=== PATIENT | male | born 2000 | race Caucasian/White ===

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

== ENCOUNTER 2023-03-17 11:32 | Emergency (ER) | payer OTHER, SELFPAY ==
[2023-03-17 11:37] VITALS: BP 150/70; PULSE 90; RESP 18; TEMP 36.8; O2SAT 99
--- NOTE | 2023-03-17 12:20 | DI.RAD_ITS ---
Exam(s) XR CHEST 2V PA LATERAL EXAM: XR CHEST 2V PA LATERAL CLINICAL HISTORY: rt chest pain TECHNIQUE: 2D digital imaging was performed. COMPARISON: No exams were available for comparison FINDINGS: HEART: Normal size. Aorta: Not dilated. PULMONARY VASCULATURE: Normal. LUNGS: Clear. PLEURAL SPACE: No pleural effusion or pneumothorax. BONE:Unremarkable for age. Soft tissues: Unremarkable. IMPRESSION: No acute abnormality. DATA REPOSITORY: RADIATION DOSE DELIVERED:
--- NOTE | 2023-03-17 12:22 | W.ED.GENAD ---
HPI General Mode of arrival: ambulatory. Date/Time Provider Initiated Documentation: 03/17/23 11:45. Limitations to Documentation: no limitations. Information obtained by: patient. HPI Narrative: 23-year-old male presents with chief complaint of chest pain. Patient states that he was [place] and fell and landed on his right flank and back. He sustained direct trauma to his ribs on that side. He has had pain since the fall 2 days ago. No associated shortness of breath. No abdominal pain. No other injury sustained. Related Data Home Medications Medication Instructions Recorded Confirmed Unknown [No Known Home Meds] 04/21/21 03/17/23 Allergies Allergy/AdvReac Type Severity Reaction Status Date / Time No Known Allergies Allergy Unverified 03/17/23 11:42 General Stated Complaint: Fall/Non TraumaCriteria HANNA: 3 Review of Systems All systems reviewed & are unremarkable except as noted in HPI and below Cardiovascular Cardiovascular: Denies dyspnea Respiratory Respiratory: Denies dyspnea Musculoskeletal Musculoskeletal: Reports as per HPI Exam Const General: cooperative and no acute distress [facility] Head: normocephalic and atraumatic Mouth: moist mucous membranes Eyes Conjunctivae: normal conjunctivae Sclera: normal sclerae Neck Neck: trachea midline and supple Chest Chest: no crepitus, tenderness rib (Right lower posterior lateral) and other Resp Auscultation: clear to auscultation bilaterally, no rales, no rhonchi and no wheezes Cardio Rate: regular rate and not tachycardic Rhythm: regular rhythm GI Palpation: soft, not firm, no guarding, no masses, not rigid and nontender Back/Spine/Pelvis Cervical Spine: cervical ROM normal and No cervical spinal tenderness Thoracic/Lumbar Spine: thoracic and lumbar spine normal to inspection Skin General skin exam: no rashes or lesions noted Neuro General: patient alert, patient awake and tone normal Psych Appearance: grossly normal Mental Status: mental status grossly normal Speech and Movement: speech and movement normal Course Vital Signs Vital signs: Vital Signs Temperature 36.8 C 03/17/23 11:37 Pulse 90 03/17/23 11:37 Respiratory Rate 18 03/17/23 11:37 Blood Pressure 150/70 H 03/17/23 11:37 Pulse Oximetry 99 03/17/23 11:37 Temperature 36.8 C 03/17/23 11:37 Temperature Source Oral 03/17/23 11:37 Pulse 90 03/17/23 11:37 Respiratory Rate 18 03/17/23 11:37 Respiratory Effort Normal 03/17/23 11:52 Respiratory Depth Normal 03/17/23 11:52 Respiratory Pattern Normal 03/17/23 11:52 Blood Pressure 150/70 H 03/17/23 11:37 Blood Pressure Position Sitting 03/17/23 11:37 Pulse Oximetry 99 03/17/23 11:37 Oxygen Delivery Method Room Air 03/17/23 11:37 Oxygen Flow Rate 0 03/17/23 11:37 Pain Level 5 03/17/23 11:52 Medical Decision Making 23-year-old male here 2 days after fall while [place] rail [place] with direct trauma to posterior lateral right ribs. Patient tender right posterior lateral ribs with no crepitus. Concern for diminished breath sounds on the right. Patient is hemodynamically stable. Abdominal exam is benign. No gross hematuria. Plan to obtain chest x-ray to assess for pneumothorax. Chest x-ray was obtained and interpreted by radiology: No acute cardiopulmonary process. No pneumothorax. Suspect rib contusion versus fracture not apparent on x-ray. Plan for incentive spirometry and pain control. Quality:[facility] Health Related Social Needs: No Data to Display [facility] All Active Problems (Updated 03/17/23 @ 12:32 by Latrell Jurado MD) Contusion of rib on right side (Acute) Social History Smoking/Tobacco Use Status: Current every day Tobacco Type: cigarettes and e-cigarettes Smoking risk assessment performed?: Yes Alcohol Intake: current Alcohol Intake frequency: a few times a month Drug use: Never Substance use type: does not use Do you feel safe at home: Yes Do you feel safe in your relationship?: Yes Discharge Plan Disposition Patient Disposition: Home Condition: Stable Discharge Details Clinical Impression: Contusion of rib on right side Primary Care Provider: Danica,Local ED Provider: Latrell Jurado Home Meds and New Rx's Prescriptions: No Action No Known Home Meds Discharge Instructions Instructions: Rib Contusion (ED) Additional Instructions: Please take ibuprofen over the counter. Take 600mg by mouth every 6 hours as needed for pain. Please take acetaminophen (tylenol) - 650mg every 6 hours by mouth as needed for pain. Use lidocaine patches. These are available [id number]. Dose according to label. Please contact your primary care physician to arrange follow-up. Your blood pressure was elevated today at 150/70. This is too high. Please be sure to follow-up with your primary care physician to have this rechecked. Should blood pressure remain elevated, additional diagnostics and treatment may be necessary. Return to the ER immediately for any worsening or new concerning symptoms.
[2023-03-17] MEDS: Lidocaine 5% Patch 1 PATCH TP (12:43)
[2023-03-17] MEDS: Acetaminophen 325 MG TAB 650 MG PO (12:44)
[2023-03-17] MEDS: Ibuprofen 600 MG TAB PO (12:44)
[2023-03-17 12:47] VITALS: BP 150/70; PULSE 90; RESP 18; TEMP 36.8; O2SAT 99
== END 2023-03-17 12:52 | disposition home or self-care (01) ==
PROVIDERS: Emergency Provider Student in an Organized Health Care Education/Training Program
DX: S20.211A Contusion of right front wall of thorax, initial encounter (principal); F17.210 Nicotine dependence, cigarettes, uncomplicated; F17.290 Nicotine dependence, other tobacco product, uncomplicated; W17.89XA Other fall from one level to another, initial encounter; Y93.23 Activity, snow (alpine) (downhill) skiing, snowboarding, sledding, tobogganing and snow tubing; Y92.838 Other recreation area as the place of occurrence of the external cause
CPT/HCPCS: 99283; 71046

== ENCOUNTER 2023-03-21 09:59 | Emergency (ER) | payer OTHER, SELFPAY ==
[2023-03-21] VITALS (25 sets, daily range): BP systolic 139–218; BP diastolic 65–196; PULSE 63–81; RESP 14–23; O2SAT 95–100
--- NOTE | 2023-03-21 10:00 | RT.EKG_ITS ---
APPROVED REPORT Exam: Resting ECG Reason for Exam: chest pain Patient Location: E HR:70 bpm ECG Measurements Heart Rate 70 AXIS DC 104 P 245 QRSd 102 QRS 82 QT 404 T 46 QTc 436 Conclusion Ectopic atrial rhythm...abnormal P axis, normal rate ST elev, probable normal early repol pattern...ST elevation, age<55 Physician: no stemi, minimal elevation with no recip depression. Does not meet stemi criterion
[2023-03-21 10:24] LABS: Abs Immature Grans 0.09 10^3/uL (0.0-0.06); Absolute Monocyte Count 0.76 10^3/uL (0.1-0.8); Basophils % 0.6; Eosinophils % 1.6; HCT 46.3 % (40.0-50.0); HGB 16.4 g/dL (13.5-17.5); Immature Grans % 0.6; Lymphocytes % 8.2; MCH 30.8 pg (27.0-33.0); MCHC 35.4 % (32.0-36.0); MCV 87 fL (80-95); MPV 10.1 fL (8.0-11.0); Monocytes % 4.8; Neutrophils % 84.2; Platelet Count 193 10^3/uL (130-400); RBC 5.32 10^6/uL (4.36-5.78); RDW 11.9 % (11.8-14.1); RDW-SD 37.9 fL; WBC 15.91 10^3/uL (4.4-10.8)
[2023-03-21 10:28] LABS: Absolute Eosinophil Count 0.25 10^3/uL (0.0-0.7)
[2023-03-21] MEDS: Omnipaque 350 MG/ML 100 ML BTL IJ (10:30)
[2023-03-21] MEDS: Normal Saline - Diluent 50 ML VIAL IJ (10:31)
--- NOTE | 2023-03-21 10:33 | DI.CT_ITS ---
Exam(s) CT HEAD CERV SPINE FACIAL WO EXAM: CT HEAD CERV SPINE FACIAL WO CLINICAL HISTORY: ski accident, hit face, altered. TECHNIQUE: Imaging Protocol: Axial computed tomography images with coronal and sagittal reformatted images were created and reviewed COMPARISON: CT CT HEAD WO from 04/21/2021 FINDINGS: CT BRAIN: There are no skull fractures nor fluid in the visualized paranasal sinuses. There is circumferential mucosal thickening without air-fluid levels noted in the maxillary sinuses. Also mild mucosal thick ening in the frontal and sphenoid sinuses. Mastoid air cells are clear. There is a small area of hemorrhage in the high left frontal lobe measuring 1.2 x 1.0 cm.. There is also some layering blood within the dependent aspect of the right lateral ventricle. There is also so me blood within the left side of the upper spinal canal at the craniocervical junction. There is also subtle density in the anterior right temporal lobe which may be subtle contusion CT MAXILLOFACIAL BONES: There is mucosal thickening the paranasal sinuses without air-fluid levels. No obvious orbital blowou t fracture. No nasal bone fractures. No mandible fracture. CT CERVICAL SPINE: There is atlantoaxial subluxation with 7 millimeter distance between the C1 arch anterior aspect and the anterior aspect of the odontoid process. There is no evidence of fracture of the odontoid nor of C2 nor of the C1 arch.. There is no offset of the spinal laminar line. There is blood in the upper le ft cervical spinal canal. IMPRESSION: 1. Acute intracranial hemorrhage. There is hyperdense blood in the high left frontal lobe measuring a pproximately 12 x 10 x 10 mm. There is also blood layering within the right lateral ventricle. There is also some blood within the left side of the upper spinal canal at the craniocervical junction 2. Significant spinal trauma with atlantoaxial subluxation and some blood evident within the left laura e of the spinal canal at the craniocervical junction region. No obvious fracture of C1 arch. Suspect an injury of the transverse ligament No facet joint malalignment evident. No facial bone fractures. Mucosal thickening in the paranasal sinuses but not associated with fluid l evels therein. Please note this trauma patient also has significant findings in the chest and abdomen. See separate CT scan reports Findings called by myself to ER physician 03/21/2023 11:40 a.m. RADIATION DOSE DELIVERED: 2,580.35mGy.cm Total DLP 2,580.35mGy.cm Total DLP DATA REPOSITORY: All CT scans at this facility are submitted to the National Radiology Data Registry (NRDR) Dose Index Registry (DIR) with the [employer] (ACR). RADIATION OPTIMIZATION: All CT scans at this facility use at least one of these dose optimization te chniques: automated exposure control; mA and/or kV adjustment per patient size (includes targeted exa ms where dose is matched to clinical indication); or iterative reconstruction.
[2023-03-21 10:42] LABS: ALT 259 U/L (16-63); AST 292 U/L (15-37); Albumin 4.4 g/dL (3.4-5.0); Alkaline Phosphatase 71 U/L (46-116); BUN 15 mg/dL (7-18); Bilirubin, Total 0.5 mg/dL (0.2-1.0); CREATININE 1.1 mg/dL (0.70-1.30); Chloride 99 mmol/L (98-107); Estimated GFR 97.95 (mL/min/1.73m2); Glucose 179 mg/dL (74-106); Lipase 57 U/L (16-77); Potassium 3.9 mmol/L (3.5-5.1); Sodium 136 mmol/L (136-145); Total Protein 7.4 g/dL (6.4-8.2); Troponin I < 50 ng/L (< or =60)
--- NOTE | 2023-03-21 10:45 | DI.CT_ITS ---
Exam(s) CT CHEST/ABD/PEL W EXAM: CT CHEST/ABD/PEL W CLINICAL HISTORY: ski trauma, chest and abd pain, left hip trauma. TECHNIQUE: Imaging Protocol: Axial computed tomography images with coronal and sagittal reformatted images were created and reviewed CONTRAST MATERIAL: Intravenous: Omnipaque 350 Contrast volume:100 ml Oral: None COMPARISON: No exams were available for comparison FINDINGS: CHEST: LUNGS: There are patchy infiltrates and ground-glass infiltrates in both lungs, possibly lung contusi ons given the trauma history here but cannot exclude possibility of simultaneous infectious etiology. These all exhibits similar appearance. The most prominent is in the right lower lobe. There is al so some infiltrate in the right upper lobe. There is sparing of the right middle lobe. There is als o involvement of the left lower lobe medial basal segment and apical posterior segment of the left up per lobe adjacent to the major fissure. There are no pleural effusions. No pneumothorax. No signif icant focal findings in the trachea and mainstem bronchi. . MEDIASTINUM: No evidence of sternal fracture nor mediastinal hematoma. No pneumomediastinum. No inc idental hilar nor mediastinal adenopathy. Thyroid unremarkable. CARDIAC: Heart size is normal. There is no pericardial effusion.Thoracic aorta appears intact. OSSEOUS: No fractures evident.. ABDOMEN: There is significant pneumoperitoneum. LIVER: No evidence of liver laceration nor other significant focal findings in the liver. There is a tiny amount of fluid in the right paracolic gutter subjacent to the right hepatic lobe. GALLBLADDER/BILIARY: No acute gallbladder pathology. CBD is not dilated. PANCREAS: No evidence of pancreatic mass nor dilatation of the pancreatic duct. SPLEEN: Spleen size normal. There is small amount of fluid around the spleen. Subtle splenic lucenc ies noted which may be small peripheral lacerations. No subcapsular hematoma. Small amount of fluid noted subjacent to the inferior aspect of the spleen. ADRENALS: There are no significant adrenal masses. KIDNEYS: No evidence of renal lacerations. No evidence of subcapsular hematomas. No cysts nor solid renal masses. No calculi. No hydronephrosis nor hydroureter. No obvious clots nor gas in the urin flavia bladder.. ABDOMINAL AORTA: Abdominal aorta is intact. Aortoiliac segments are intact. LYMPH NODES: There is no retroperitoneal nor paraaortic adenopathy. ABDOMINAL WALL: Mild bilateral gynecomastia. No subcutaneous bruising nor fluid collections. GI: Small-bowel enteritis pattern evident. No bowel obstruction. PELVIS: LYMPH NODES: There is no intrapelvic nor inguinal adenopathy. GI: No obvious appendicitis. No evidence of sigmoid diverticulitis. URINARY BLADDER: No intraluminal clots nor extravasation. No obvious masses. No gas within the lume n. REPRODUCTIVE: Prostate size age-appropriate OSSEOUS: No fractures evident. Small benign bone island noted in the left ischial tuberosity in the pelvis. Sacroiliac joints unremarkable. No vertebral fractures. No obvious rib fractures. IMPRESSION: 1. There is concerning pneumoperitoneum. Implies ruptured viscus. There is no obvious bowel wall no r mesenteric hematoma to localize site of bowel perforation although there is a generalized small bow el enteritis pattern. There is small amount of ascites subjacent to the liver and spleen. Small per ipheral hypodensities in the spleen may be small peripheral splenic lacerations. No large subcapsula r hematoma. No liver nor kidney lacerations and the aorta appears intact. 2. Significant bilateral lung infiltrates without evidence of rib fractures, pleural effusions, pneum othorax, nor pneumomediastinum. 3. Aorta is intact. No pericardial effusion. No mediastinal hematoma. 4. Surgical consultation recommended. Discussed with ER physician. RADIATION DOSE DELIVERED: 1,261.64mGy.cm Total DLP DATA REPOSITORY: All CT scans at this facility are submitted to the National Radiology Data Registry (NRDR) Dose Index Registry (DIR) with the [employer] (ACR). RADIATION OPTIMIZATION: All CT scans at this facility use at least one of these dose optimization te chniques: automated exposure control; mA and/or kV adjustment per patient size (includes targeted exa ms where dose is matched to clinical indication); or iterative reconstruction.
[2023-03-21] MEDS: MORPHine 4 MG/ML SYR IVP (10:50)
[2023-03-21] MEDS: Ondansetron 4 MG/2 ML VIAL IVP (10:50)
--- NOTE | 2023-03-21 11:00 | DI.CT_ITS ---
Exam(s) CT THORACIC LUMBAR SPINE REC EXAM: CT THORACIC LUMBAR SPINE REC CLINICAL HISTORY: ski trauma, chest and abd pain, left hip trauma TECHNIQUE: COMPARISON: CT CT CHEST/ABD/PEL W from 03/21/2023 FINDINGS: THORACIC SPINAL COLUMN: No evidence of fracture, listhesis, nor facet joint malalignment. No acute c ompromise of the spinal canal. LUMBOSACRAL SPINAL COLUMN.: No evidence of fracture, listhesis, nor facet joint malalignment. No dis c space narrowing. No sacral fracture evident. No coccyx fracture. IMPRESSION: No acute osseous findings in the thoracic and lumbar spinal columns.
--- NOTE | 2023-03-21 11:03 | DI.RAD_ITS ---
Exam(s) XR ELBOW LT COMPLETE EXAM: XR ELBOW LT COMPLETE CLINICAL HISTORY: ski trauma, chest and abd pain, left hip trauma. TECHNIQUE: 2D digital imaging was performed. COMPARISON: No exams were available for comparison FINDINGS: 3 views No evidence of fracture or joint effusion. No swelling of the olecranon bursa. Radial head and neck appear unremarkable. Epicondyles unremarkable. IMPRESSION: No acute osseous findings in the left elbow. DATA REPOSITORY: RADIATION DOSE DELIVERED:
--- NOTE | 2023-03-21 11:03 | DI.RAD_ITS ---
Exam(s) XR ELBOW RT COMPLETE EXAM: XR ELBOW RT COMPLETE CLINICAL HISTORY: eval for fx. TECHNIQUE: 2D digital imaging was performed. COMPARISON: CR XR ELBOW LT COMPLETE from 03/21/2023 FINDINGS: 3 views No evidence of fracture no elbow joint effusion. No swelling of the olecranon bursa. Radial head an d neck unremarkable. Epicondyles unremarkable. IMPRESSION: No evidence of right elbow fracture or joint effusion. DATA REPOSITORY: RADIATION DOSE DELIVERED:
[2023-03-21] MEDS: Normal Saline 1,000 ML 1000 ML IV (11:15)
--- NOTE | 2023-03-21 11:36 | W.ED.GENAD ---
[facility] General Date/Time Provider Initiated Documentation: 03/21/23 09:59. HPI Narrative: 23-year-old male with no significant past medical history except for recent contusion of the ribs on the right side after skiing accident 4 days ago presents today via EMS for a ski accident. Patient was skiing at a very high rate of speed with his helmet when he went off one of the lips and careened into the murguia. He was unconscious. He was pulled off of trees from the forest. He was brought in by EMS for further assessment. Concern for an initial loss of consciousness. Patient was confused initially, but became quite conversant after that. He had complaints of chest and abdomen pain on initial exam via EMS. Patient continues to complain of pain in these areas. He admits to some tingling in his toes, but no other numbness or tingling elsewhere. No other complaints at this time. He is not on blood thinners. Related Data Home Medications Medication Instructions Recorded Confirmed Unknown [No Known Home Meds] 04/21/21 03/21/23 Allergies Allergy/AdvReac Type Severity Reaction Status Date / Time No Known Allergies Allergy Unverified 03/21/23 10:07 General Stated Complaint: Trauma HANNA: 2 Review of Systems All systems reviewed & are unremarkable except as noted in HPI and below Exam Narrative Exam Narrative: 1.Const: Well-nourished, Well-developed, appearing stated age 2.Eyes: PERRL, no conjunctival injection, and symmetrical lids. 3.ENT: Patient demonstrates trauma to the teeth, partial removal of the frontal incisors. Notably stable on palpation though. Moist MM. Neck: Symmetric, trachea midline, No thyromegaly. There is no evidence of raccoon eyes, causey sign, CSF rhinorrhea, mastoid tenderness, cranial crepitus, hemotympanum, exophthalmos, or hyphema. no signs of jaw deformity, no evidence of a LeFort's fracture, with an intact palate, nose and orbital region. There is no evidence of a nasal septal hematoma. No proptosis. Jaw closes symmetrically. Airway is clear. 4.CVS: Regular rate and rhythm, Normal s1 and s2. No murmurs, carotid bruits, rubs, or gallops. Radial pulses 2+ bilaterally and symmetric. Dorsalis pedis pulses 2+ bilaterally and symmetric. 2+ capillary refill. No evidence of distant heart sounds. No extremity edema. No evidence of gross hemorrhage. 5.RESP: Airway clear, no obstructions. No abrasions or ecchymosis. Chest movement symmetric with respirations. Generalized chest wall tenderness. Trachea midline. No crepitus. No step offs. No paradoxical movements. Minimal crackles throughout.. No rhonchi, wheezing or stridor. Breath sound symmetric. No Sucking chest wounds. 6.GI: Soft, nondistended, mild diffuse tenderness throughout, particularly in the flanks bilaterally. Bowel tones present but limited. No masses or organomegaly. Small ecchymotic and bruised over the left anterior hip. No periumbilical ecchymosis or seatbelt sign. Flank and CVA tenderness is appreciated. Genital Exam: Intact and traumatically unremarkable genital and rectal exam with no significant bruising, blood, or deformity. Rectal tone normal, stool without gross blood. 7.MSK: No gross deformities or discolorations or lesions. Tolerates full range of motion of extremities without tenderness. Minimal achiness in the left and right elbow. Minimal tenderness over the left hip. All compartments of upper and lower extremities are soft. Vascular exam demonstrates brisk capillary refill and intact pulses in all extremities. Pelvic exam demonstrates a stable pelvis, minimal tenderness to lateral compression and palpation of symphysis pubis. No midline tenderness to palpation over the TLS spine. Generalized tenderness throughout midline for the cervical spine. C-spine cautions maintained. Patient has +5 out of 5 strength in the lower extremities in dorsiflexion and plantarflexion, knee flexion and extension, hip flexion and extension. Normal strength for dorsiflexion and plantar flexion of the great toe bilaterally. There is +2 over 2 dorsalis pedis pulses bilaterally. There is normal sensation to the skin with light touch at the foot, knee, and hip. Normal saddle sensation. Good sensation over the deep sural nerve area bilaterally. Rectal exam demonstrates good rectal tone with excellent shyam-rectal sensation. Reflexes are +2 over 4 in the patellar reflex bilaterally. +5 out of 5 strength in the medial, ulnar, radial nerve distribution bilaterally in the hands as well as intact light touch sensation to these dermatomes on the hands 8.Skin: Warm, Dry. 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 Sensation grossly intact, no focal neurologic deficits. Patient able to move all extremities. Patient does have some perseverations, but is ANO x 4 otherwise. Normal sensation throughout, including good sensation to light touch and pinprick over the hands and the feet. 10.Psych: (AAO) x3. Appropriate mood and affect Course Vital Signs Vital signs: Vital Signs Pulse 68 03/21/23 10:03 Respiratory Rate 20 03/21/23 10:03 Blood Pressure 218/196 H 03/21/23 10:03 Pulse Oximetry 99 03/21/23 10:03 Pulse 68 03/21/23 11:06 Pulse 72 03/21/23 11:10 Respiratory Rate 16 03/21/23 11:10 Respiratory Effort Normal 03/21/23 10:06 Blood Pressure 155/88 H 03/21/23 11:06 Blood Pressure Mean 108 03/21/23 11:06 Blood Pressure Position Supine 03/21/23 10:03 Pulse Oximetry 100 03/21/23 11:10 Oxygen Delivery Method Room Air 03/21/23 10:03 Oxygen Flow Rate 0 03/21/23 10:03 Lab/Test Results Lab/Test Results: Laboratory Tests Range/Units 03/21/23 10:15 WBC (4.4-10.8) 10^3/uL 15.91 H RBC (4.36-5.78) 10^6/uL 5.32 Hgb (13.5-17.5) g/dL 16.4 Hct (40.0-50.0) % 46.3 MCV (80-95) fL 87 MCH (27.0-33.0) pg 30.8 MCHC (32.0-36.0) % 35.4 RDW (11.8-14.1) % 11.9 Plt Count (130-400) 10^3/uL 193 MPV (8.0-11.0) fL 10.1 Immature Gran % 0.6 Neutrophils % 84.2 Lymphocytes % 8.2 Monocytes % 4.8 Eosinophils % 1.6 Basophils % 0.6 Nucleated RBC % (0.0-0.3) % 0.0 Absolute Neutrophils (1.2-6.7) 10^3/uL 13.40 H Absolute Lymphocytes (1.2-3.4) 10^3/uL 1.30 Absolute Monocytes (0.1-0.8) 10^3/uL 0.76 Absolute Eosinophils (0.0-0.7) 10^3/uL 0.25 Absolute Basophils (0.0-0.2) 10^3/uL 0.10 Sodium (136-145) mmol/L 136 Potassium (3.5-5.1) mmol/L 3.9 Chloride (98-107) mmol/L 99 Carbon Dioxide (21.0-32.0) mmol/L 27.0 Anion Gap (3-11) mmol/L 10.0 BUN (7-18) mg/dL 15 Creatinine (0.70-1.30) mg/dL 1.1 Est GFR (CKD-EPI 2020) (mL/min/1.73m2) 97.95 Glucose (74-106) mg/dL 179 H Calcium (8.5-10.1) mg/dL 9.0 Total Bilirubin (0.2-1.0) mg/dL 0.5 AST (15-37) U/L 292 H ALT (16-63) U/L 259 H Alkaline Phosphatase (46-116) U/L 71 Troponin I (< or =60) ng/L < 50 Total Protein (6.4-8.2) g/dL 7.4 Albumin (3.4-5.0) g/dL 4.4 Lipase (16-77) U/L 57 Medical Decision Making 23-year-old male with no significant past medical history except for recent contusion of the ribs on the right side after skiing accident 4 days ago presents today via EMS for a ski accident. Patient was skiing at a very high rate of speed with his helmet when he went off one of the lips and careened into the murguia. He was unconscious. He was pulled off of trees from the forest. He was brought in by EMS for further assessment. Concern for an initial loss of consciousness. Patient was confused initially, but became quite conversant after that. He had complaints of chest and abdomen pain on initial exam via EMS. Patient continues to complain of pain in these areas. He admits to some tingling in his toes, but no other numbness or tingling elsewhere. No other complaints at this time. He is not on blood thinners. Exam demonstrates tenderness diffusely through the abdomen, particularly on the flanks. Diffuse chest wall tenderness. He does have fracture over the front of his incisors, however there is no instability for the jaw or the teeth otherwise. Midline cervical spine tenderness. Neurologic assessment appears to be intact with good sensation movement and strength of the upper and lower extremities, good dorsiflexion of the great toe. He does have what appears to be a bruise and ecchymosis over the left pelvic region just anterior to the ASIS. With the patient's mechanism of injury, high concern for potential intra-abdominal intracranial or thoracic injury. Will get CT scan of the head neck chest abdomen pelvis and face. He does have minimal tenderness over the elbows, no gross deformity. Will get x-rays to rule out fracture. Patient will be kept in C-spine precautions at all time out of concern for potential cervical spine injury. Bedside E-FAST was performed, pulmonary B-lines noted throughout, concern for pulmonary contusion. No evidence of pneumothorax. Abdomen shows evidence of no large amounts of free fluid in the abdomen. No gross abnormality noted. Will treat the patient's pain, monitor closely and reassess. 12:[address] imaging has returned, notable pulmonary contusions, free air is noted in the abdomen, concerning for potential perforation. No large splenic laceration is noted, there is a small amount of free fluid in the abdomen. I was contacted by the radiologist Dr. Torres, formal read is not completed, however for the brain there appears to be fluid in the right ventricle, there appears to be a small intraparenchymal bleed at the superior aspect of the brain as well. Additionally there appears to be subluxation of the AL joint with about 8 mm of disassociation. No clear evidence of fracture though. Also appears to be blood collecting in the spinal canal at that area. Reassessment was performed to the patient, and he continues to demonstrate surprising notable stability. He has diminished in his perseverations, he recalls who I am now. He is able to continue to answer all questions extremely well, and shows no signs whatsoever of airway compromise, diminishing mental status, or obtundation. Patient in fact appears more clairvoyant than previously noted on his initial assessment which at that time was quite reassuring. On secondary exam/reassessment that was performed, the area of contusion over by the ASIS is now actually starting to bleed, which changes my differential from bruising and excoriation to a small perforation. Looking at his snow pants it does appear that there is some holes in that area, concerned that potentially a stick went through and causing intra-abdominal perforation transitioning this to a penetrating trauma. Zosyn has been started. Tetanus is already updated from last year. We did contact [facility] and discussed the case with trauma surgeon Dr. Dumont, he agrees with the need for transfer. [facility] is currently not available for flight. Patient will be transferred via ground transport from [place]. Because of the patient's intracranial and neurologic etiologies, I do feel that department is appropriate rather than admission here. Patient remains notably hemodynamically stable with blood pressure in the 140 systolic, heart rate in the 60s to 70s, oxygenation 96 to 99% on room air. Patient appears appropriate for transport as availability for transport is currently present. I did contact the patient's father as well and discussed the case with him. He agrees with the current plan. I have extensively reviewed the treatment plan with the patient. I have addressed all patient concerns at this time. I have also discussed the plan with the admitting physician and they agree with the current assessment and plan and have agreed to assume responsibility for the patient. All parties demonstrate verbal understanding and agreement with our assessment and plan at this time. The documentation in this chart was dictated using [employer] dictation software. Please excuse any dictation errors. At time of transfer the patient was reassessed and continued to demonstrate No signs of acute respiratory distress requiring intubation, hemodynamic instability requiring pressor support, or rapidly declining mental status. FINDINGS: CT BRAIN: There are no skull fractures nor fluid in the visualized paranasal sinuses. There is circumferential mucosal thickening without air-fluid levels noted in the maxillary sinuses. Also mild mucosal thickening in the frontal and sphenoid sinuses. Mastoid air cells are clear. There is a small area of hemorrhage in the high left frontal lobe measuring 1.2 x 1.0 cm.. There is also some layering blood within the dependent aspect of the right lateral ventricle. There is also some blood within the left side of the upper spinal canal at the craniocervical junction. There is also subtle density in the anterior right temporal lobe which may be subtle contusion CT MAXILLOFACIAL BONES: There is mucosal thickening the paranasal sinuses without air-fluid levels. No obvious orbital blowout fracture. No nasal bone fractures. No mandible fracture. CT CERVICAL SPINE: There is atlantoaxial subluxation with 7 millimeter distance between the C1 arch anterior aspect and the anterior aspect of the odontoid process. There is no evidence of fracture of the odontoid nor of C2 nor of the C1 arch.. There is no offset of the spinal laminar line. There is blood in the upper left cervical spinal canal. IMPRESSION: 1. Acute intracranial hemorrhage. There is hyperdense blood in the high left frontal lobe measuring approximately 12 x 10 x 10 mm. There is also blood layering within the right lateral ventricle. There is also some blood within the left side of the upper spinal canal at the craniocervical junction 2. Significant spinal trauma with atlantoaxial subluxation and some blood evident within the left side of the spinal canal at the craniocervical junction region. No obvious fracture of C1 arch. Suspect an injury of the transverse ligament No facet joint malalignment evident. No facial bone fractures. Mucosal thickening in the paranasal sinuses but not associated with fluid levels therein. Please note this trauma patient also has significant findings in the chest and abdomen. See separate CT scan reports Findings called by myself to ER physician 03/21/2023 11:40 a.m. FINDINGS: CHEST: LUNGS: There are patchy infiltrates and ground-glass infiltrates in both lungs, possibly lung contusions given the trauma history here but cannot exclude possibility of simultaneous infectious etiology. These all exhibits similar appearance. The most prominent is in the right lower lobe. There is also some infiltrate in the right upper lobe. There is sparing of the right middle lobe. There is also involvement of the left lower lobe medial basal segment and apical posterior segment of the left upper lobe adjacent to the major fissure. There are no pleural effusions. No pneumothorax. No significant focal findings in the trachea and mainstem bronchi. . MEDIASTINUM: No evidence of sternal fracture nor mediastinal hematoma. No pneumomediastinum. No incidental hilar nor mediastinal adenopathy. Thyroid unremarkable. CARDIAC: Heart size is normal. There is no pericardial effusion.Thoracic aorta appears intact. OSSEOUS: No fractures evident.. ABDOMEN: There is significant pneumoperitoneum. LIVER: No evidence of liver laceration nor other significant focal findings in the liver. There is a tiny amount of fluid in the right paracolic gutter subjacent to the right hepatic lobe. GALLBLADDER/BILIARY: No acute gallbladder pathology. CBD is not dilated. PANCREAS: No evidence of pancreatic mass nor dilatation of the pancreatic duct. SPLEEN: Spleen size normal. There is small amount of fluid around the spleen. Subtle splenic lucencies noted which may be small peripheral lacerations. No subcapsular hematoma. Small amount of fluid noted subjacent to the inferior aspect of the spleen. ADRENALS: There are no significant adrenal masses. KIDNEYS: No evidence of renal lacerations. No evidence of subcapsular hematomas. No cysts nor solid renal masses. No calculi. No hydronephrosis nor hydroureter. No obvious clots nor gas in the urinary bladder.. ABDOMINAL AORTA: Abdominal aorta is intact. Aortoiliac segments are intact. LYMPH NODES: There is no retroperitoneal nor paraaortic adenopathy. ABDOMINAL WALL: Mild bilateral gynecomastia. No subcutaneous bruising nor fluid collections. GI: Small-bowel enteritis pattern evident. No bowel obstruction. PELVIS: LYMPH NODES: There is no intrapelvic nor inguinal adenopathy. GI: No obvious appendicitis. No evidence of sigmoid diverticulitis. URINARY BLADDER: No intraluminal clots nor extravasation. No obvious masses. No gas within the lumen. REPRODUCTIVE: Prostate size age-appropriate OSSEOUS: No fractures evident. Small benign bone island noted in the left ischial tuberosity in the pelvis. Sacroiliac joints unremarkable. No vertebral fractures. No obvious rib fractures. IMPRESSION: 1. There is concerning pneumoperitoneum. Implies ruptured viscus. There is no obvious bowel wall nor mesenteric hematoma to localize site of bowel perforation although there is a generalized small bowel enteritis pattern. There is small amount of ascites subjacent to the liver and spleen. Small peripheral hypodensities in the spleen may be small peripheral splenic lacerations. No large subcapsular hematoma. No liver nor kidney lacerations and the aorta appears intact. 2. Significant bilateral lung infiltrates without evidence of rib fractures, pleural effusions, pneumothorax, nor pneumomediastinum. 3. Aorta is intact. No pericardial effusion. No mediastinal hematoma. 4. Surgical consultation recommended. Discussed with ER physician. FINDINGS: THORACIC SPINAL COLUMN: No evidence of fracture, listhesis, nor facet joint malalignment. No acute compromise of the spinal canal. LUMBOSACRAL SPINAL COLUMN.: No evidence of fracture, listhesis, nor facet joint malalignment. No disc space narrowing. No sacral fracture evident. No coccyx fracture. IMPRESSION: No acute osseous findings in the thoracic and lumbar spinal columns. FINDINGS: 3 views No evidence of fracture or joint effusion. No swelling of the olecranon bursa. Radial head and neck appear unremarkable. Epicondyles unremarkable. IMPRESSION: No acute osseous findings in the left elbow. FINDINGS: 3 views No evidence of fracture no elbow joint effusion. No swelling of the olecranon bursa. Radial head and neck unremarkable. Epicondyles unremarkable. IMPRESSION: No evidence of right elbow fracture or joint effusion Quality:[facility] Health Related Social Needs: No Data to Display Critical Care Time Critical Care Time Critical Care Time: Yes Total Critical Care Time: 45 Attestation: Upon my evaluation, this patient had a high probability of imminent or life-threatening deterioration, which required my direct attention, intervention, and personal management. I have personally provided 45 minutes of critical care time exclusive of time spent on separately billable procedures. Time includes review of laboratory data, radiology results, discussion with consultants, and monitoring for potential decompensation. Interventions were performed as documented. [facility] All Active Problems (Updated 03/21/23 @ 12:25 by Tera Ghosh DO) Injury of cervical spine (Acute) Intraparenchymal hemorrhage of brain (Acute) Contusion of both lungs (Acute) Intra-abdominal free air of unknown etiology (Acute) Injury due to skiing accident (Acute) Contusion of rib on right side (Acute) Social History Smoking/Tobacco Use Status: Current every day Tobacco Type: cigarettes and e-cigarettes Smoking risk assessment performed?: Yes Alcohol Intake: current Alcohol Intake frequency: a few times a month Drug use: Never Substance use type: does not use Do you feel safe at home: Yes Do you feel safe in your relationship?: Yes Discharge Plan Disposition Patient Disposition: Transfer-Acute Inpatient Care Specific Acute Inpt Facility: [facility] Discharge Details Clinical Impression: Injury due to skiing accident, Intra-abdominal free air of unknown etiology, Contusion of both lungs, Intraparenchymal hemorrhage of brain, Injury of cervical spine Primary Care Provider: No,Local ED Provider: Tera Ghosh Home Meds and New Rx's Prescriptions: No Action No Known Home Meds Discharge Data Discharge Date/Time-TO BE ENTERED AT DEPARTURE: 03/21/23 13:00 POCUS Exam (ED) Efast Exam DATE OF EXAM: 03/21/23 TIME OF EXAM: 12:26 PROVIDER THAT PEFORMED THE STUDY: Tera Ghosh IS THIS A REPEAT EXAM DURING THIS ENCOUNTER: no REASON FOR EXAM: Blunt abdominal trauma and Blunt chest trauma VISUALIZED STRUCTURES: Hepatorneal space, Pelvis, Pericardium, Perisplenic space, Pleural space/left and Pleural space/right PERTINENT FINDINGS/IMPRESSION: no apparent free fluid, lung sliding, left side, lung sliding,right side, no pericardial effusion and no pleural effusion on the right side DIFFERENTIAL DIAGNOSES: Pulmonary contusions noted. Limited Transthoracic Echo: Exam complete Limited Abdominal Exam: Exam complete Limited Retroperitoneal Exam: Exam complete
[2023-03-21] MEDS: PIPERACILLIN/TAZO 3.375 GM in Normal Saline 50 ML IVPB (11:45)
[2023-03-21] MEDS: HYDROmorphone 2 MG/ML SYR 1 MG IVP (12:12)
[2023-03-21 12:28] LABS: Bilirubin Negative (Negative); Blood Large (Negative); Clarity Cloudy (Clear); Glucose Negative (Negative); Ketones Negative (Negative); Leukocyte Esterase Negative (Negative); Nitrite Negative (Negative); Specific Gravity 1.015 (1.005-1.025); Urobilinogen 0.2 mg/dL (Up to 0.2)
[2023-03-21 12:35] LABS: Bacteria Negative HPF (Negative); C & S Indicated? No; Casts Negative LPF (Negative); Crystals Negative HPF (Negative); Epithelial Cells Negative HPF (Negative); Mucus Negative (Negative); RBC >50 HPF (0-2); WBC Negative HPF (0-5)
--- NOTE | 2023-03-21 13:05 | DI.VRAD_ITS ---
PROCEDURE INFORMATION: Preliminary report Exam: CT Head Without Contrast Exam date and time: 03/21/2023 10:31 AM Age: 23 years old Clinical indication: Injury or trauma; Other: Ski; Blunt trauma (contusions or hematomas); Consciousness not specified; Other: All; Injury date: 03/21/23 TECHNIQUE: Imaging protocol: Computed tomography of the head without contrast. Radiation optimization: All CT scans at this facility use at least one of these dose optimization techniques: automated exposure control; mA and/or kV adjustment per patient size (includes targeted exams where dose is matched to clinical indication); or iterative reconstruction. COMPARISON: CT HEAD WO 04/21/2021 4:21 PM FINDINGS: Brain: Intracranial hemorrhage including 7 mm intra-axial hemorrhage in the right temporal lobe, 9 mm intra-axial hemorrhage in the superior left parietal lobe, 2 mm left parafalcine subdural hematoma, and small quantity of intraventricular hemorrhage. Symmetric caliber of the cortical sulci. No midline shift. Cerebral ventricles: Normal caliber of the ventricles. Paranasal sinuses: Mucoperiosteal disease in the ethmoid, maxillary, and sphenoid sinuses. Mastoid air cells: No mastoid effusion. Bones/joints: No acute calvarial injury. Soft tissues: No significant scalp hematoma. IMPRESSION: Intracranial hemorrhage including 7 mm intra-axial hemorrhage in the right temporal lobe, 9 mm intra-axial hemorrhage in the superior left parietal lobe, 2 mm left parafalcine subdural hematoma, and small quantity of intraventricular hemorrhage. The aforementioned findings initiated a critical results communication pathway. An addendum will be issued at the time of clincian notification. PROCEDURE INFORMATION: Preliminary report Exam: CT Maxillofacial Without Contrast Exam date and time: 03/21/2023 10:31 AM Age: 23 years old Clinical indication: Injury or trauma; Other: Ski; Blunt trauma (contusions or hematomas); Consciousness not specified; Other: All; Injury date: 03/21/23 TECHNIQUE: Imaging protocol: Computed tomography of the face without contrast. Radiation optimization: All CT scans at this facility use at least one of these dose optimization techniques: automated exposure control; mA and/or kV adjustment per patient size (includes targeted exams where dose is matched to clinical indication); or iterative reconstruction. COMPARISON: None FINDINGS: Orbital cavities: Unremarkable appearance of the globes, optic nerves, extraocular muscles. Bones/joints: No acute facial fracture. Paranasal sinuses: Bilateral paranasal sinus mucoperiosteal disease. Lymph nodes: Multiple lymph nodes, the majority of which are subcentimeter in size. Soft tissues: No significant facial soft tissue swelling. Nasal cavity: Symmetric caliber of the nasal turbinates. Pharynx: Adenoidal hypertrophy. IMPRESSION: No acute facial fracture. PROCEDURE INFORMATION: Preliminary report Exam: CT Cervical Spine Without Contrast Exam date and time: 03/21/2023 10:31 AM Age: 23 years old Clinical indication: Injury or trauma; Other: Ski; Blunt trauma (contusions or hematomas); Consciousness not specified; Other: All; Injury date: 03/21/23 TECHNIQUE: Imaging protocol: Axial CT images of the cervical spine were performed without contrast administration. Note sagittal and coronal reconstructions were not submitted for review at the time of preliminary interpretation. Radiation optimization: All CT scans at this facility use at least one of these dose optimization techniques: automated exposure control; mA and/or kV adjustment per patient size (includes targeted exams where dose is matched to clinical indication); or iterative reconstruction. COMPARISON: None FINDINGS: Bones/joints: No acute bony injury in the visualized cervical spine on the axial images submitted. Additional sagittal and coronal reconstructed images are required for definitive diagnosis. Lungs: Asymmetric apical airspace disease, left greater than right. Soft tissues: Unremarkable. IMPRESSION: No acute bony injury in the visualized cervical spine on the axial images submitted for review. Additional sagittal and coronal reconstructed images are required for definitive diagnosis. Dictated and Authenticated by: Ion Walker MD. Ordering:ANDERSON Haley MD
--- NOTE | 2023-03-21 13:08 | DI.VRAD_ITS ---
Addendum created by Ion Walker MD on 03/21/2023 1:07:41 PM EST: THIS REPORT CONTAINS FINDINGS THAT MAY BE CRITICAL TO PATIENT CARE. The findings were verbally communicated via telephone conference with JUANA Grimm at 1:07 PM EST on 03/21/2023. The findings were acknowledged and understood. Initial report created on 03/21/2023 1:04:27 PM EST: PROCEDURE INFORMATION: Preliminary report Exam: CT Head Without Contrast Exam date and time: 03/21/2023 10:31 AM Age: 23 years old Clinical indication: Injury or trauma; Other: Ski; Blunt trauma (contusions or hematomas); Consciousness not specified; Other: All; Injury date: 03/21/23 TECHNIQUE: Imaging protocol: Computed tomography of the head without contrast. Radiation optimization: All CT scans at this facility use at least one of these dose optimization techniques: automated exposure control; mA and/or kV adjustment per patient size (includes targeted exams where dose is matched to clinical indication); or iterative reconstruction. COMPARISON: CT HEAD WO 04/21/2021 4:21 PM FINDINGS: Brain: Intracranial hemorrhage including 7 mm intra-axial hemorrhage in the right temporal lobe, 9 mm intra-axial hemorrhage in the superior left parietal lobe, 2 mm left parafalcine subdural hematoma, and small quantity of intraventricular hemorrhage. Symmetric caliber of the cortical sulci. No midline shift. Cerebral ventricles: Normal caliber of the ventricles. Paranasal sinuses: Mucoperiosteal disease in the ethmoid, maxillary, and sphenoid sinuses. Mastoid air cells: No mastoid effusion. Bones/joints: No acute calvarial injury. Soft tissues: No significant scalp hematoma. IMPRESSION: Intracranial hemorrhage including 7 mm intra-axial hemorrhage in the right temporal lobe, 9 mm intra-axial hemorrhage in the superior left parietal lobe, 2 mm left parafalcine subdural hematoma, and small quantity of intraventricular hemorrhage. The aforementioned findings initiated a critical results communication pathway. An addendum will be issued at the time of clincian notification. PROCEDURE INFORMATION: Preliminary report Exam: CT Maxillofacial Without Contrast Exam date and time: 03/21/2023 10:31 AM Age: 23 years old Clinical indication: Injury or trauma; Other: Ski; Blunt trauma (contusions or hematomas); Consciousness not specified; Other: All; Injury date: 03/21/23 TECHNIQUE: Imaging protocol: Computed tomography of the face without contrast. Radiation optimization: All CT scans at this facility use at least one of these dose optimization techniques: automated exposure control; mA and/or kV adjustment per patient size (includes targeted exams where dose is matched to clinical indication); or iterative reconstruction. COMPARISON: None FINDINGS: Orbital cavities: Unremarkable appearance of the globes, optic nerves, extraocular muscles. Bones/joints: No acute facial fracture. Paranasal sinuses: Bilateral paranasal sinus mucoperiosteal disease. Lymph nodes: Multiple lymph nodes, the majority of which are subcentimeter in size. Soft tissues: No significant facial soft tissue swelling. Nasal cavity: Symmetric caliber of the nasal turbinates. Pharynx: Adenoidal hypertrophy. IMPRESSION: No acute facial fracture. PROCEDURE INFORMATION: Preliminary report Exam: CT Cervical Spine Without Contrast Exam date and time: 03/21/2023 10:31 AM Age: 23 years old Clinical indication: Injury or trauma; Other: Ski; Blunt trauma (contusions or hematomas); Consciousness not specified; Other: All; Injury date: 03/21/23 TECHNIQUE: Imaging protocol: Axial CT images of the cervical spine were performed without contrast administration. Note sagittal and coronal reconstructions were not submitted for review at the time of preliminary interpretation. Radiation optimization: All CT scans at this facility use at least one of these dose optimization techniques: automated exposure control; mA and/or kV adjustment per patient size (includes targeted exams where dose is matched to clinical indication); or iterative reconstruction. COMPARISON: None FINDINGS: Bones/joints: No acute bony injury in the visualized cervical spine on the axial images submitted. Additional sagittal and coronal reconstructed images are required for definitive diagnosis. Lungs: Asymmetric apical airspace disease, left greater than right. Soft tissues: Unremarkable. IMPRESSION: No acute bony injury in the visualized cervical spine on the axial images submitted for review. Additional sagittal and coronal reconstructed images are required for definitive diagnosis. Dictated and Authenticated by: Ion Walker MD. Ordering:ANDERSON Haley MD
== END 2023-03-21 13:00 | disposition short-term general hospital (02) ==
PROVIDERS: Emergency Provider Student in an Organized Health Care Education/Training Program
DX: S27.322A Contusion of lung, bilateral, initial encounter (principal); S06.2XAA Diffuse traumatic brain injury with loss of consciousness status unknown, initial encounter; S19.89XA Other specified injuries of other specified part of neck, initial encounter; S02.5XXA Fracture of tooth (traumatic), initial encounter for closed fracture; W22.8XXA Striking against or struck by other objects, initial encounter; Y93.23 Activity, snow (alpine) (downhill) skiing, snowboarding, sledding, tobogganing and snow tubing; Y92.838 Other recreation area as the place of occurrence of the external cause
CPT/HCPCS: 36415; 74177; 76604; 76705; 76857; 80053; 83690; 93005; 96361; 96365; 96375; 99285; 70450; 70486; 71260; 72125; 73080; 81003; 81015; 84484; 85025; 93010; 99284; J1170; J2270; J2405; J2543; J3490